=== PATIENT | male | born 1950 | race Caucasian/White ===

== ENCOUNTER 2016-10-25 08:48 | Emergency (ER) | payer BC, OTHER ==
[~2016-10-25] VITALS: Ht 177.8 cm; Wt 112.0 kg
[~2016-10-25 08:48] MED LIST: ALBUTEROL SULF8.5 GM IH; ALLEGRA-D 121 TABLET PO; MOTRIN800 MG PO
[2016-10-25 09:50] LABS: ADD MIUA? NO; BILIRUBIN NEGATIVE; BLOOD NEGATIVE; COLOR YELLOW ((YELLOW)); GLUCOSE (STRIP) NEGATIVE; KETONES NEGATIVE; LEUKOCYTES NEGATIVE; NITRITE NEGATIVE; PROTEIN (STRIP) NEGATIVE; SPECIFIC GRAVITY 1.015 (1.000-1.030); UROBILINOGEN 0.2 MG/DL (0.2-1.0)
[2016-10-25] MEDS ORDERED: NAPROXEN500 MG PO (10:06)
[2016-10-25] MEDS ORDERED: LIDOCAINE700 MG TD (10:12)
[2016-10-25 10:22] VITALS: BP 115/64
== END 2016-10-25 10:33 | disposition home or self-care (01) ==
LOC: EME 08:48
PROVIDERS: Physician Assistant Medical
DX: S20.212A Contusion of left front wall of thorax, initial encounter (principal); W01.198A Fall on same level from slipping, tripping and stumbling with subsequent striking against other object, initial encounter; J45.909 Unspecified asthma, uncomplicated; J44.9 Chronic obstructive pulmonary disease, unspecified; F17.200 Nicotine dependence, unspecified, uncomplicated
CPT/HCPCS: 71020; 81003; 99281; 99284